=== PATIENT | male | born 1950 | race Caucasian/White ===

== ENCOUNTER 2017-09-16 14:11 | Observation (INO) ==
[2017-09-16] MEDS ORDERED: DOCUSATE SODIUM 100 MG CAPSULE PO PRN (14:39)
[2017-09-16] MEDS ORDERED: LACTULOSE 20 GM/30 ML UDCUP PO PRN (14:39)
[2017-09-16] MEDS ORDERED: MAGNESIUM SULF RIDER 2 GM in PREMIX 1 EACH IV PRN ×2 (14:39→20:35)
[2017-09-16] MEDS ORDERED: ZALEPLON 5 MG CAPSULE PO PRN (14:39)
[2017-09-16] MEDS ORDERED: ACETAMINOPHEN 325 MG TABLET PO PRN (14:39)
[2017-09-16] MEDS ORDERED: MAGNESIUM SULF RIDER 4 GM in PREMIX 1 EACH IV PRN (14:39)
[2017-09-16] MEDS ORDERED: ONDANSETRON 4 MG/2 ML VIAL IV PRN (14:39)
[2017-09-16] MEDS ORDERED: POTASSIUM CHLORIDE 20 MEQ TABLET PO PRN (14:39)
[2017-09-16 15:55] LABS: Basophils % 0.4 % (0.0-0.8); Eosinophils # 0.2 10*3/uL (0.0-0.87); Eosinophils % 2.3 % (0.00-10.9); Hematocrit 41.7 VOL% (42.0-52.0); Hemoglobin 13.7 GM/DL (14.0-18.0); Immature Granulocytes % 0.3 %; Immature Granulocytes Absolute 0.02 #; Lymphocytes % 40.2 % (21.2-54.2); Mean Corpuscular HGB Conc 32.9 GM/DL (32-36); Mean Corpuscular Hemoglobin 30 PG (27-34); Mean Corpuscular Volume 90.5 FL (87-102); Mean Platelet Volume 10.5 FL (9.6-12.0); Monocytes # 0.5 10*3/uL (0.11-0.8); Monocytes % 6.8 % (1.7-12.7); Neutrophils # 3.7 10*3/uL (1.4-7.4); Platelet Count 178 T/CUMM (130-400); Red Blood Count 4.61 MC/CUMM (3.8-5.5); Red Cell Distribution Width 13.1 % (9.3-17.3); White Blood Count 7.5 T/CUMM (4-12)
[2017-09-16 16:26] LABS: Alanine Aminotransferase 31 U/L (16-61); Albumin 3.4 G/DL (3.4-5.0); Alkaline Phosphatase 62 U/L (45-117); Aspartate Amino Transferase 24 U/L (0-37); Bilirubin,Total < 0.39 MG/DL (0.2-1.0); Blood Urea Nitrogen 13 MG/DL (7-18); Calcium 8.7 MG/DL (8.5-10.1); Glucose 99 MG/DL (74-106); Osmolality,Calculated 282.1 MOS/KG (273-304); Potassium 3.9 MMOL/L (3.5-5.1); Sodium 142 MMOL/L (136-145); Total Protein 7.1 G/DL (6.4-8.3); Troponin I Only 0.234 NG/ML (0.00-0.045)
[2017-09-16] MEDS: PANTOPRAZOLE 40 MG TABLET PO SCH (16:27)
[2017-09-16] MEDS: LOSARTAN 25 MG TABLET PO SCH (16:27)
[2017-09-16] MEDS: ENOXAPARIN 100 MG/ML SYRINGE SUBCUT SCH (16:27)
[2017-09-16 18:42] LABS: Troponin I Only 0.244 NG/ML (0.00-0.045)
[2017-09-16] MEDS ORDERED: POTASSIUM CHLORIDE RIDER 10 MEQ in PREMIX 1 EACH IV PRN (20:35)
[2017-09-16] MEDS: METOPROLOL TARTRATE 25 MG TABLET PO SCH (20:41)
[2017-09-16] MEDS: ROSUVASTATIN 20 MG TABLET PO SCH (20:41)
[2017-09-16 21:15] LABS: Troponin I Only 0.239 NG/ML (0.00-0.045)
[2017-09-17] MEDS ORDERED: SODIUM CHLORIDE 0.9% 1,000 ML IV SCH (03:00)
[2017-09-17] MEDS: ENOXAPARIN 100 MG/ML SYRINGE SUBCUT SCH ×2 (03:34→16:30)
[2017-09-17 05:14] LABS: Basophils % 0.4 % (0.0-0.8); Eosinophils # 0.2 10*3/uL (0.0-0.87); Eosinophils % 2.1 % (0.00-10.9); Immature Granulocytes % 0.3 %; Immature Granulocytes Absolute 0.02 #; Mean Corpuscular HGB Conc 34.1 GM/DL (32-36); Mean Corpuscular Hemoglobin 30 PG (27-34); Mean Corpuscular Volume 88.4 FL (87-102); Mean Platelet Volume 10.7 FL (9.6-12.0); Monocytes # 0.5 10*3/uL (0.11-0.8); Monocytes % 6.2 % (1.7-12.7); Neutrophils # 3.8 10*3/uL (1.4-7.4); Platelet Count 188 T/CUMM (130-400); Red Blood Count 4.64 MC/CUMM (3.8-5.5); Red Cell Distribution Width 13.2 % (9.3-17.3); White Blood Count 7.5 T/CUMM (4-12)
[2017-09-17 05:26] LABS: INR 1.1; PT Patient Result 11.4 SECS
[2017-09-17 05:57] LABS: Risk Ratio 5.58; VLDL CHOLESTEROL 91.6 MG/DL
[2017-09-17] MEDS ORDERED: DIAZEPAM 5 MG TABLET PO ONE (06:00)
[2017-09-17] MEDS ORDERED: diphenhydrAMINE CAP 25 MG CAPSULE PO ONE (06:00)
[2017-09-17] MEDS ORDERED: HEPARIN/NACL 0.9% 2 UNITS/ML 2,000 ML IV ONE (06:39)
[2017-09-17] MEDS ORDERED: ASPIRIN CHEW 81 MG TABLET PO ONE (06:44)
[2017-09-17] MEDS: LOSARTAN 25 MG TABLET PO SCH ×2 (06:45→16:22)
[2017-09-17] MEDS: PANTOPRAZOLE 40 MG TABLET PO SCH ×2 (06:46→16:22)
[2017-09-17] MEDS: ASPIRIN EC 81 MG TABLET PO SCH ×2 (06:46→16:21)
[2017-09-17] MEDS: METOPROLOL TARTRATE 25 MG TABLET PO SCH ×3 (06:46→22:42)
[2017-09-17] MEDS ORDERED: MIDAZOLAM 2 MG/2 ML VIAL ONE (07:18)
[2017-09-17] MEDS ORDERED: LIDOCAINE 2%/EPI 20 ML VIAL ONE (07:18)
[2017-09-17] MEDS ORDERED: fentaNYL 100 MCG/2 ML VIAL ONE (07:19)
[2017-09-17] MEDS ORDERED: EPTIFIBATIDE 20,000 MCG/10 ML VIAL ONE (07:56)
[2017-09-17] MEDS ORDERED: EPTIFIBATIDE 75 MG/100 ML BOTTLE IV ONE (07:56)
[2017-09-17] MEDS ORDERED: EPTIFIBATIDE 75 MG/100 ML BOTTLE IV SCH (08:02)
[2017-09-17] MEDS ORDERED: DEXTROSE 50% 25 GM/50 ML VIAL IV PRN (08:52)
[2017-09-17] MEDS ORDERED: GLUCAGON 1 MG VIAL IM PRN (08:52)
[2017-09-17] MEDS ORDERED: HYDROmorphone 2 MG/1 ML VIAL IV PRN (08:53)
[2017-09-17] MEDS ORDERED: Dulaglutide [Trulicity] 1.5 MG SQ SCH (09:00)
[2017-09-17] MEDS: TICAGRELOR 90 MG TABLET PO SCH ×2 (16:30→22:42)
[2017-09-17] MEDS: INSULIN REGULAR 100 UNIT/ML SUBCUT SCH ×3 (16:54→22:41)
[2017-09-17] MEDS: ROSUVASTATIN 20 MG TABLET PO SCH (22:42)
[2017-09-18 05:35] LABS: Basophils % 0.3 % (0.0-0.8); Eosinophils # 0.1 10*3/uL (0.0-0.87); Eosinophils % 1.8 % (0.00-10.9); Hematocrit 40.8 VOL% (42.0-52.0); Hemoglobin 14.1 GM/DL (14.0-18.0); Immature Granulocytes % 0.5 %; Immature Granulocytes Absolute 0.04 #; Lymphocytes # 2.4 10*3/uL (1.4-4.0); Lymphocytes % 32.3 % (21.2-54.2); Mean Corpuscular HGB Conc 34.6 GM/DL (32-36); Mean Corpuscular Hemoglobin 30 PG (27-34); Mean Corpuscular Volume 86.6 FL (87-102); Mean Platelet Volume 10.7 FL (9.6-12.0); Monocytes # 0.5 10*3/uL (0.11-0.8); Monocytes % 6.8 % (1.7-12.7); Neutrophils # 4.3 10*3/uL (1.4-7.4); Neutrophils % 58.3 % (38.7-73.9); Platelet Count 173 T/CUMM (130-400); Red Blood Count 4.71 MC/CUMM (3.8-5.5); White Blood Count 7.3 T/CUMM (4-12)
[2017-09-18 06:20] LABS: Calcium 8.4 MG/DL (8.5-10.1); Osmolality,Calculated 279.4 MOS/KG (273-304)
[2017-09-18 07:45] VITALS: BP 130/74
== END 2017-09-18 07:54 | disposition home or self-care (01) ==
LOC: INTOOBSV 15:00 → N.TELEN 15:00
PROVIDERS: ADMIT Internal Medicine Interventional Cardiology; ATTEND Internal Medicine Interventional Cardiology
PROC: CLCCHCL (ICD-10-PCS; 2017-09-17 07:45)

== ENCOUNTER 2019-08-11 06:00 | Inpatient (IN) ==
[2019-08-11] MEDS ORDERED: DEXTROSE 50% 25 GM/50 ML VIAL IV PRN ×2 (11:23)
[2019-08-11] MEDS ORDERED: GLUCAGON 1 MG VIAL IM PRN ×2 (11:23)
[2019-08-11] MEDS ORDERED: CEFUROXIME INJ 1,500 MG in SYRINGE 1 EACH IV ONE (11:23)
[2019-08-11 12:04] LABS: Basophils % 0.4 % (0.0-0.8); Eosinophils # 0.2 10*3/uL (0.0-0.87); Eosinophils % 2.3 % (0.00-10.9); Hematocrit 41.2 VOL% (42.0-52.0); Hemoglobin 13.1 GM/DL (14.0-18.0); Immature Granulocytes % 0.4 %; Immature Granulocytes Absolute 0.03 #; Lymphocytes # 2.8 10*3/uL (1.4-4.0); Lymphocytes % 37.7 % (21.2-54.2); Mean Corpuscular HGB Conc 31.8 GM/DL (32-36); Mean Corpuscular Volume 89.4 FL (87-102); Mean Platelet Volume 10.8 FL (9.6-12.0); Neutrophils % 54.2 % (38.7-73.9); Platelet Count 178 T/CUMM (130-400); Red Blood Count 4.61 MC/CUMM (3.8-5.5); Red Cell Distribution Width 13.7 % (9.3-17.3); White Blood Count 7.5 T/CUMM (4-12)
[2019-08-11] MEDS: INSULIN LISPRO 100 UNIT/ML SUBCUT SCH ×3 (12:07→20:42)
[2019-08-11 12:23] LABS: Allen Test Positive; Pt O2 Delivery Device Room Air
[2019-08-11 12:25] LABS: ABG Base Excess -1.4 MMOL/L (-2.5-2.5); ABG HCO3 23.6 MMOL/L (20-26); ABG Oxygen Saturation 95.5 % (95-100); ABG PCO2 40.6 MM HG (35-48); ABG PH 7.382 (7.35-7.45); ABG PO2 80.8 MM HG (80-95); ABG TCO2 24.8 MMOL/L (23-27)
[2019-08-11 12:27] LABS: Alanine Aminotransferase 50 U/L (16-61); Albumin 3.3 G/DL (3.4-5.0); Alkaline Phosphatase 59 U/L (45-117); Aspartate Amino Transferase 26 U/L (0-37); Bilirubin,Total < 0.39 MG/DL (0.2-1.0); Blood Urea Nitrogen 15 MG/DL (7-18); Calcium 9.1 MG/DL (8.5-10.1); Estimated Glom Filtration Rate 90 ML/MIN; Glucose 190 MG/DL (74-106); Total Protein 7.8 G/DL (6.4-8.3)
[2019-08-11] MEDS: SODIUM CHLORIDE 0.9% 1,000 ML IV SCH (14:03)
[2019-08-11] MEDS: CHLORHEXIDINE 4% SOLN 118 ML BOTTLE TOP SCH ×2 (15:13→20:42)
[2019-08-11] MEDS: CHLORHEXIDINE 0.12% ORAL RINSE 60 ML BOTTLE SWISH/SPIT SCH (20:41)
[2019-08-12] MEDS ORDERED: PAPAVERINE 60 MG/2 ML VIAL ONE (04:23)
[2019-08-12] MEDS ORDERED: VANCOMYCIN 500 MG VIAL ONE (04:24)
[2019-08-12] MEDS ORDERED: VANCOMYCIN 1,000 MG VIAL ONE (04:24)
[2019-08-12] MEDS ORDERED: DIAZEPAM 5 MG TABLET PO ONE (06:00)
[2019-08-12] MEDS ORDERED: PANTOPRAZOLE 40 MG TABLET PO ONE (06:00)
[2019-08-12] MEDS ORDERED: SUFentanil 250 MCG/5 ML AMP ONE (06:00)
[2019-08-12] MEDS ORDERED: MIDAZOLAM 10 MG/2 ML VIAL ONE (06:00)
[2019-08-12] MEDS ORDERED: AMINOCAPROIC ACID 5,000 MG/20 ML VIAL ONE (06:11)
[2019-08-12] MEDS ORDERED: CEFUROXIME INJ 1,500 MG in SYRINGE 1 EACH IV ONE (07:00)
[2019-08-12] MEDS ORDERED: ALBUTEROL 2.5 MG/3 ML NEB RESP TX ONE (07:55)
[2019-08-12 08:23] LABS: ABG Base Excess 0.8 MMOL/L (-2.5-2.5); ABG HCO3 25.2 MMOL/L (20-26); ABG Oxygen Saturation 99.9 % (95-100); ABG PCO2 50.3 MM HG (35-48); ABG PH 7.342 (7.35-7.45); ABG TCO2 24.4 MMOL/L (23-27); Glucose Heart Surgery 174 MG/DL (74-106); Hematocrit Heart Surgery 36.3 PERCENT (42-52); Hemoglobin Heart Surgery 11.8 G/DL (14.0-18.0); Ionized Calcium Arterial 1.21 MMOL/L (1.21-1.46); PCO2 Patient Temp Arterial 50.3 MMHG; PH Patient Temp Arterial 7.342; Patient Temperature 37 CELCIUS; Potassium Heart/CVR 4.2 MMOL/L (3.5-5.1); Sodium Heart/CVR 137 MMOL/L (135-145)
[2019-08-12 09:00] LABS: Apearance,Urine CLEAR (Clear); Bacteria,Urine Occasional /HPF (Few); Bilirubin,Urine Negative (Negative); Blood, Urine Negative (Negative); Glucose,Urine (UA) Negative (Negative); Ketones,Urine Negative (Negative); Mucus,Urine Occasional /LPF (Occasional); Nitrite,Urine Negative (Negative); Protein,Urine Negative; RBC,Urine 1 /HPF (0-4); Urine Color Yellow (Yellow); Urine Specific Gravity 1.016 (1.001-1.035); Urine Urobilinogen < 2.0 EU/DL (0.2-1.0); WBC,Urine <1 /HPF (0-6)
[2019-08-12] MEDS ORDERED: LIDOCAINE 2% 5 ML VIAL ONE ×2 (09:58→12:00)
[2019-08-12] MEDS ORDERED: PHENYLEPHRINE DRIP 20 MG/250 ML PREMIX IV ONE (09:58)
[2019-08-12] MEDS ORDERED: CALCIUM CHLORIDE 1,000 MG/10 ML VIAL IV ONE (09:58)
[2019-08-12] MEDS ORDERED: HEPARIN/NACL 0.9% 2 UNITS/ML 500 ML IV ONE (09:58)
[2019-08-12] MEDS ORDERED: ETOMIDATE 40 MG/20 ML VIAL IV ONE (09:58)
[2019-08-12] MEDS ORDERED: VECURONIUM 10 MG VIAL IV ONE (09:58)
[2019-08-12] MEDS ORDERED: PHENYLEPHRINE 1 MG/10 ML SYRINGE IV ONE (09:59)
[2019-08-12] MEDS ORDERED: NITROGLYCERIN DRIP 50 MG/250 ML BOTTLE IV ONE (09:59)
[2019-08-12 10:07] LABS: Hematocrit Heart Surgery 24.8 PERCENT (42-52); PCO2 Patient Temp Venous 36.1 MM HG; PH Patient Temp Venous 7.464; PO2 Patient Temp Venous 38.1 MM HG; Potassium Heart/CVR 5.5 MMOL/L (3.5-5.1); VBG Base Excess 2.4 MEQ/L (0-4); VBG HCO3 26.4 MEQ/L (24-28); VBG PCO2 41.8 MMHG (41-51); VBG PH 7.42; VBG PO2 46.8 MMHG (17-40)
[2019-08-12] MEDS ORDERED: POTASSIUM CHLORIDE RIDER 100 ML IV ONE (10:10)
[2019-08-12] MEDS ORDERED: PHENYLEPHRINE DRIP 40 MG/250 ML PREMIX IV ONE (10:10)
[2019-08-12 10:37] LABS: Hematocrit Heart Surgery 26.4 PERCENT (42-52); Hemoglobin Heart Surgery 8.5 G/DL (14.0-18.0); PCO2 Patient Temp Venous 30.9 MM HG; PH Patient Temp Venous 7.521; PO2 Patient Temp Venous 32.1 MM HG; Potassium Heart/CVR 5.6 MMOL/L (3.5-5.1); VBG Base Excess 2.8 MEQ/L (0-4); VBG HCO3 26.7 MEQ/L (24-28); VBG Oxygen Saturation 81.2 %; VBG PCO2 37.5 MMHG (41-51); VBG PH 7.461; VBG PO2 42.4 MMHG (17-40)
[2019-08-12 11:51] LABS: ABG Base Excess 0.9 MMOL/L (-2.5-2.5); ABG HCO3 25.3 MMOL/L (20-26); ABG PCO2 42.6 MM HG (35-48); ABG PH 7.393 (7.35-7.45); Glucose Heart Surgery 269 MG/DL (74-106); Hematocrit Heart Surgery 27.5 PERCENT (42-52); Hemoglobin Heart Surgery 8.9 G/DL (14.0-18.0); Ionized Calcium Arterial 1.15 MMOL/L (1.21-1.46); PCO2 Patient Temp Arterial 42.6 MMHG; PH Patient Temp Arterial 7.393; Patient Temperature 37 CELCIUS; Sodium Heart/CVR 135 MMOL/L (135-145)
[2019-08-12] MEDS ORDERED: ALBUMIN 25% 25 GM/100 ML VIAL IV ONE (12:00)
[2019-08-12] MEDS ORDERED: DEXTROSE 5% KCL 20 MEQ 20 MEQ/1,000 ML BAG IV ONE (12:00)
[2019-08-12] MEDS ORDERED: SODIUM BICARBONATE 50 MEQ/50 ML VIAL IV ONE (12:00)
[2019-08-12] MEDS ORDERED: MANNITOL 100 GM/500 ML BAG IV ONE (12:00)
[2019-08-12] MEDS ORDERED: PROTAMINE SULFATE 250 MG/25 ML VIAL IV ONE (12:00)
[2019-08-12] MEDS ORDERED: FUROSEMIDE 20 MG/2 ML VIAL ONE (12:01)
[2019-08-12] MEDS ORDERED: HEPARIN 10,000 UNIT/10 ML VIAL ONE (12:01)
[2019-08-12] MEDS ORDERED: methylPREDNISolone SOD SUC 1,000 MG/8 ML VIAL ONE (12:01)
[2019-08-12] MEDS ORDERED: MAGNESIUM SULFATE 5 GM/10 ML VIAL IV ONE (12:01)
[2019-08-12] MEDS ORDERED: PROTAMINE SULFATE 50 MG/5 ML VIAL IV ONE (12:01)
[2019-08-12] MEDS ORDERED: THROMBIN TOPICAL (RECOMBINANT) 5,000 UNIT VIAL TOP ONE (12:44)
[2019-08-12] MEDS: LACTATED RINGERS 1,000 ML IV PRN ×2 (13:10→14:15)
[2019-08-12] MEDS ORDERED: SODIUM CHLORIDE 0.9% 250 ML IV ONE (13:25)
[2019-08-12] MEDS ORDERED: SODIUM CHLORIDE 0.9% 1,000 ML IV ONE (13:25)
[2019-08-12] MEDS ORDERED: LACTATED RINGERS 2,000 ML IV ONE (13:25)
[2019-08-12] MEDS ORDERED: SODIUM CHLORIDE 0.9% 200 ML IV ONE (13:25)
[2019-08-12] MEDS ORDERED: SEVOFLURANE 1 UNIT/15 MINUTE INH ONE (13:25)
[2019-08-12] MEDS ORDERED: ONDANSETRON 4 MG/2 ML VIAL IV PRN (13:38)
[2019-08-12] MEDS ORDERED: INSULIN REGULAR 100 UNIT/ML IV PRN (13:38)
[2019-08-12] MEDS ORDERED: ACETAMINOPHEN 650 MG SUPP RECTAL PRN (13:38)
[2019-08-12] MEDS ORDERED: MIDAZOLAM 10 MG/2 ML VIAL IV PRN (13:38)
[2019-08-12] MEDS ORDERED: PHENYLEPHRINE DRIP 40 MG/250 ML PREMIX IV PRN (13:38)
[2019-08-12] MEDS ORDERED: SODIUM CHLORIDE 0.45% 1,000 ML IV SCH ×2 (13:38)
[2019-08-12] MEDS ORDERED: NITROPRUSSIDE 100 MG in DEXTROSE 5% 250 ML IV PRN (13:38)
[2019-08-12] MEDS ORDERED: CALCIUM CHLORIDE 1,000 MG/10 ML SYRINGE IV PRN (13:38)
[2019-08-12] MEDS ORDERED: VECURONIUM 10 MG VIAL IV PRN ×2 (13:38)
[2019-08-12] MEDS ORDERED: MORPHINE 10 MG/1 ML VIAL IV PRN (13:38)
[2019-08-12] MEDS ORDERED: LACTATED RINGERS 250 ML IV PRN (13:38)
[2019-08-12] MEDS ORDERED: INSULIN REGULAR DRIP 100 ML IV SCH (13:38)
[2019-08-12] MEDS ORDERED: CHLORHEXIDINE 4% SOLN 118 ML BOTTLE TOP PRN (13:38)
[2019-08-12] MEDS ORDERED: MAGNESIUM SULF RIDER 2 GM in PREMIX 1 EACH IV PRN (13:38)
[2019-08-12] MEDS ORDERED: MAGNESIUM SULF RIDER 4 GM in PREMIX 1 EACH IV PRN (13:38)
[2019-08-12] MEDS ORDERED: INSULIN REGULAR 100 UNIT/ML IV ONE (13:38)
[2019-08-12] MEDS ORDERED: MIDAZOLAM 2 MG/2 ML VIAL IV PRN (13:38)
[2019-08-12] MEDS ORDERED: DEXTROSE 10% 250 ML BAG IV PRN ×2 (13:47→13:48)
[2019-08-12 13:54] LABS: ABG Base Excess 1.4 MMOL/L (-2.5-2.5); ABG HCO3 25.7 MMOL/L (20-26); ABG Oxygen Saturation 98.7 % (95-100); ABG PCO2 52.4 MM HG (35-48); ABG PH 7.333 (7.35-7.45); ABG TCO2 26.1 MMOL/L (23-27); Glucose Heart Surgery 248 MG/DL (74-106); Hematocrit Heart Surgery 24.8 PERCENT (42-52); Potassium Heart/CVR 3.6 MMOL/L (3.5-5.1)
[2019-08-12 14:01] LABS: Basophils % 0.2 % (0.0-0.8); Eosinophils % 0.2 % (0.00-10.9); Hematocrit 23.4 VOL% (42.0-52.0); Hemoglobin 7.6 GM/DL (14.0-18.0); Immature Granulocytes % 1.3 %; Immature Granulocytes Absolute 0.16 #; Lymphocytes % 7.9 % (21.2-54.2); Mean Corpuscular HGB Conc 32.5 GM/DL (32-36); Mean Corpuscular Volume 88.3 FL (87-102); Mean Platelet Volume 10.4 FL (9.6-12.0); Monocytes % 3.2 % (1.7-12.7); Neutrophils % 87.2 % (38.7-73.9); Platelet Count 163 T/CUMM (130-400); Red Blood Count 2.65 MC/CUMM (3.8-5.5); Red Cell Distribution Width 13.5 % (9.3-17.3); White Blood Count 12.5 T/CUMM (4-12)
[2019-08-12 14:09] LABS: INR 1.1; PT Patient Result 12.2 SECS (9.6-12.2)
[2019-08-12] MEDS: POTASSIUM CHLORIDE RIDER 20 MEQ in PREMIX 1 EACH IV PRN ×3 (14:10→20:26)
[2019-08-12] MEDS: ALBUMIN 5% 12.5 GM in PREMIX 1 EACH IV PRN ×2 (14:15→18:56)
[2019-08-12 14:19] LABS: CKMB % 6.9 %
[2019-08-12 14:20] LABS: Troponin I 6.06 NG/ML (0.00-0.045)
[2019-08-12 14:22] LABS: Albumin 2.7 G/DL (3.4-5.0); Bilirubin,Total 0.5 MG/DL (0.2-1.0); Calcium 8.3 MG/DL (8.5-10.1); Total Protein 5.8 G/DL (6.4-8.3)
[2019-08-12] MEDS: CHLORHEXIDINE 4% SOLN 118 ML BOTTLE TOP SCH (14:50)
[2019-08-12] MEDS: CHLORHEXIDINE 0.12% ORAL RINSE 60 ML BOTTLE SWISH/SPIT SCH ×2 (14:50→21:14)
[2019-08-12] MEDS: INSULIN LISPRO 100 UNIT/ML SUBCUT SCH (14:50)
[2019-08-12] MEDS: SODIUM CHLORIDE 0.9% 1,000 ML IV SCH (14:50)
[2019-08-12] MEDS: POTASSIUM CHLORIDE RIDER 10 MEQ in PREMIX 1 EACH IV PRN ×3 (15:07→21:10)
[2019-08-12 17:04] LABS: ABG Base Excess 0.8 MMOL/L (-2.5-2.5); ABG HCO3 25.2 MMOL/L (20-26); ABG Oxygen Saturation 98.8 % (95-100); ABG PCO2 44.7 MM HG (35-48); ABG PH 7.377 (7.35-7.45); ABG TCO2 23.7 MMOL/L (23-27); Glucose Heart Surgery 180 MG/DL (74-106); Hematocrit Heart Surgery 33.1 PERCENT (42-52); Hemoglobin Heart Surgery 10.7 G/DL (14.0-18.0); Potassium Heart/CVR 3.8 MMOL/L (3.5-5.1)
[2019-08-12] MEDS ORDERED: GLUCAGON 1 MG VIAL ONE (18:40)
[2019-08-12 19:23] LABS: ABG Base Excess 1.7 MMOL/L (-2.5-2.5); ABG Oxygen Saturation 99.2 % (95-100); ABG PCO2 40.1 MM HG (35-48); ABG PH 7.423 (7.35-7.45); ABG TCO2 23.5 MMOL/L (23-27); Glucose Heart Surgery 134 MG/DL (74-106); Hematocrit Heart Surgery 33.8 PERCENT (42-52)
[2019-08-12 20:13] LABS: ABG Base Excess 1.6 MMOL/L (-2.5-2.5); ABG HCO3 25.8 MMOL/L (20-26); ABG Oxygen Saturation 98.7 % (95-100); ABG PCO2 44.8 MM HG (35-48); ABG PH 7.388 (7.35-7.45); ABG TCO2 24.2 MMOL/L (23-27); Glucose Heart Surgery 135 MG/DL (74-106); Hematocrit Heart Surgery 34.4 PERCENT (42-52); Hemoglobin Heart Surgery 11.1 G/DL (14.0-18.0); Potassium Heart/CVR 3.9 MMOL/L (3.5-5.1)
[2019-08-12] MEDS: CEFUROXIME INJ 1,500 MG in SYRINGE 1 EACH IV SCH (20:33)
[2019-08-12 21:41] LABS: ABG Base Excess 1.1 MMOL/L (-2.5-2.5); ABG HCO3 25.4 MMOL/L (20-26); ABG Oxygen Saturation 98.5 % (95-100); ABG PCO2 41.9 MM HG (35-48); ABG PH 7.401 (7.35-7.45); ABG TCO2 23.4 MMOL/L (23-27); Glucose Heart Surgery 147 MG/DL (74-106); Hematocrit Heart Surgery 33.5 PERCENT (42-52); Hemoglobin Heart Surgery 10.8 G/DL (14.0-18.0); Potassium Heart/CVR 4.4 MMOL/L (3.5-5.1)
[2019-08-12 22:00] LABS: CKMB % 4.6 %
[2019-08-12 22:20] LABS: Troponin I 4.71 NG/ML (0.00-0.045)
[2019-08-12 22:42] LABS: ABG Base Excess 1.4 MMOL/L (-2.5-2.5); ABG HCO3 25.6 MMOL/L (20-26); ABG Oxygen Saturation 98.2 % (95-100); ABG PCO2 43.3 MM HG (35-48); ABG PH 7.395 (7.35-7.45); ABG TCO2 23.8 MMOL/L (23-27); Glucose Heart Surgery 154 MG/DL (74-106); Hematocrit Heart Surgery 33.6 PERCENT (42-52); Hemoglobin Heart Surgery 10.9 G/DL (14.0-18.0); Potassium Heart/CVR 4.2 MMOL/L (3.5-5.1)
[2019-08-12 23:27] LABS: ABG Base Excess 1.2 MMOL/L (-2.5-2.5); ABG HCO3 25.4 MMOL/L (20-26); ABG PCO2 43.1 MM HG (35-48); ABG PH 7.393 (7.35-7.45); ABG PO2 84.3 MM HG (80-95); ABG TCO2 23.6 MMOL/L (23-27); Glucose Heart Surgery 156 MG/DL (74-106); Hematocrit Heart Surgery 33.7 PERCENT (42-52); Hemoglobin Heart Surgery 10.9 G/DL (14.0-18.0)
[2019-08-13 00:29] LABS: ABG HCO3 25.3 MMOL/L (20-26); ABG Oxygen Saturation 98.1 % (95-100); ABG PCO2 44.7 MM HG (35-48); ABG PH 7.381 (7.35-7.45); ABG TCO2 23.8 MMOL/L (23-27); Glucose Heart Surgery 135 MG/DL (74-106); Hematocrit Heart Surgery 33.7 PERCENT (42-52); Hemoglobin Heart Surgery 10.9 G/DL (14.0-18.0); Potassium Heart/CVR 3.9 MMOL/L (3.5-5.1)
[2019-08-13] MEDS: ALBUMIN 5% 12.5 GM in PREMIX 1 EACH IV PRN (01:57)
[2019-08-13] MEDS ORDERED: FUROSEMIDE 40 MG/4 ML VIAL IV ONE (01:58)
[2019-08-13 02:31] LABS: ABG Base Excess 1.5 MMOL/L (-2.5-2.5); ABG HCO3 25.7 MMOL/L (20-26); ABG Oxygen Saturation 98.4 % (95-100); ABG PCO2 44.1 MM HG (35-48); ABG PH 7.391 (7.35-7.45); Glucose Heart Surgery 133 MG/DL (74-106); Hematocrit Heart Surgery 34.1 PERCENT (42-52); Hemoglobin Heart Surgery 11.1 G/DL (14.0-18.0); Potassium Heart/CVR 3.9 MMOL/L (3.5-5.1)
[2019-08-13] MEDS: POTASSIUM CHLORIDE RIDER 20 MEQ in PREMIX 1 EACH IV PRN (02:40)
[2019-08-13] MEDS: MORPHINE 4 MG/1 ML VIAL IV PRN ×2 (02:45→05:40)
[2019-08-13] MEDS: POTASSIUM CHLORIDE RIDER 10 MEQ in PREMIX 1 EACH IV PRN (03:21)
[2019-08-13 04:24] LABS: ABG Base Excess 2.8 MMOL/L (-2.5-2.5); ABG HCO3 26.8 MMOL/L (20-26); ABG Oxygen Saturation 96.4 % (95-100); ABG PCO2 44.1 MM HG (35-48); ABG PH 7.409 (7.35-7.45); ABG TCO2 24.9 MMOL/L (23-27); Glucose Heart Surgery 166 MG/DL (74-106); Hemoglobin Heart Surgery 11.4 G/DL (14.0-18.0); Potassium Heart/CVR 4.1 MMOL/L (3.5-5.1)
[2019-08-13 04:26] LABS: Basophils % 0.1 % (0.0-0.8); Hematocrit 32.7 VOL% (42.0-52.0); Immature Granulocytes % 0.4 %; Immature Granulocytes Absolute 0.05 #; Lymphocytes # 0.8 10*3/uL (1.4-4.0); Mean Corpuscular HGB Conc 33.6 GM/DL (32-36); Mean Corpuscular Volume 85.2 FL (87-102); Mean Platelet Volume 10.9 FL (9.6-12.0); Monocytes % 3.9 % (1.7-12.7); Neutrophils % 89.6 % (38.7-73.9); Platelet Count 152 T/CUMM (130-400); Red Blood Count 3.84 MC/CUMM (3.8-5.5); Red Cell Distribution Width 14.2 % (9.3-17.3); White Blood Count 13.9 T/CUMM (4-12)
[2019-08-13 04:47] LABS: Albumin 3.5 G/DL (3.4-5.0); Bilirubin,Direct 0.12 MG/DL (0.0-0.20); Bilirubin,Total 0.5 MG/DL (0.2-1.0); Calcium 8.6 MG/DL (8.5-10.1); Osmolality,Calculated 277.7 MOS/KG (273-304); Total Protein 6.9 G/DL (6.4-8.3)
[2019-08-13 04:55] LABS: CKMB % 4.2 %
[2019-08-13 04:57] LABS: Troponin I 3.17 NG/ML (0.00-0.045)
[2019-08-13] MEDS ORDERED: GLUCAGON 1 MG VIAL IM PRN ×3 (09:01→18:44)
[2019-08-13] MEDS ORDERED: KETOROLAC 30 MG/1 ML VIAL IV PRN (09:01)
[2019-08-13] MEDS ORDERED: SODIUM CHLOR 0.45% KCL 20 MEQ 20 MEQ/1,000 ML BAG IV SCH (09:01)
[2019-08-13] MEDS ORDERED: ZALEPLON 5 MG CAPSULE PO PRN (09:01)
[2019-08-13] MEDS ORDERED: MAGNESIUM SULF RIDER 4 GM in PREMIX 1 EACH IV PRN (09:01)
[2019-08-13] MEDS ORDERED: ACETAMINOPHEN 325 MG TABLET PO PRN (09:01)
[2019-08-13] MEDS ORDERED: ALUMINUM/MAGNES/SIMETH MAX STR 30 ML UDCUP PO PRN (09:01)
[2019-08-13] MEDS ORDERED: MAGNESIUM SULF RIDER 2 GM in PREMIX 1 EACH IV PRN (09:01)
[2019-08-13] MEDS ORDERED: MAGNESIUM HYDROXIDE SUSP 30 ML UDCUP PO PRN (09:01)
[2019-08-13] MEDS ORDERED: POTASSIUM CHLORIDE 20 MEQ TABLET PO PRN (09:01)
[2019-08-13] MEDS ORDERED: ONDANSETRON 4 MG/2 ML VIAL IV PRN (09:01)
[2019-08-13] MEDS: KETOROLAC 30 MG/1 ML VIAL IV SCH ×3 (09:06→21:50)
[2019-08-13] MEDS: CEFUROXIME INJ 1,500 MG in SYRINGE 1 EACH IV SCH ×2 (09:08→21:49)
[2019-08-13] MEDS ORDERED: DEXTROSE 10% 250 ML BAG IV PRN (09:08)
[2019-08-13] MEDS: CHLORHEXIDINE 0.12% ORAL RINSE 60 ML BOTTLE SWISH/SPIT SCH ×3 (09:15→21:51)
[2019-08-13] MEDS: METOPROLOL TARTRATE 25 MG TABLET PO SCH ×2 (09:19→21:48)
[2019-08-13] MEDS: DOCUSATE SODIUM 100 MG CAPSULE PO SCH (09:19)
[2019-08-13] MEDS: ASPIRIN EC 81 MG TABLET PO SCH (09:19)
[2019-08-13] MEDS: LOSARTAN 25 MG TABLET PO SCH (09:21)
[2019-08-13] MEDS: PANTOPRAZOLE 40 MG TABLET PO SCH (09:21)
[2019-08-13] MEDS: FERROUS SULFATE 325 MG TABLET PO SCH (10:20)
[2019-08-13 14:02] LABS: CKMB % 2.6 %
[2019-08-13 14:07] LABS: Troponin I 2.31 NG/ML (0.00-0.045)
[2019-08-13] MEDS ORDERED: DEXTROSE 50% 25 GM/50 ML VIAL IV PRN ×2 (18:40→18:44)
[2019-08-13] MEDS: ROSUVASTATIN 20 MG TABLET PO SCH (21:48)
[2019-08-13] MEDS: INSULIN REGULAR 100 UNIT/ML SUBCUT SCH (21:48)
[2019-08-14] MEDS: INSULIN REGULAR 100 UNIT/ML SUBCUT SCH ×6 (00:42→20:47)
[2019-08-14] MEDS: KETOROLAC 30 MG/1 ML VIAL IV SCH ×5 (03:00→20:48)
[2019-08-14 05:16] LABS: Basophils % 0.1 % (0.0-0.8); Hematocrit 30.1 VOL% (42.0-52.0); Hemoglobin 9.8 GM/DL (14.0-18.0); Immature Granulocytes % 0.9 %; Immature Granulocytes Absolute 0.13 #; Lymphocytes # 1.7 10*3/uL (1.4-4.0); Lymphocytes % 12.2 % (21.2-54.2); Mean Corpuscular HGB Conc 32.6 GM/DL (32-36); Mean Corpuscular Volume 89.1 FL (87-102); Mean Platelet Volume 11.5 FL (9.6-12.0); NRBC # 0.02 10*3/uL; Neutrophils % 79.8 % (38.7-73.9); Platelet Count 140 T/CUMM (130-400); Red Blood Count 3.38 MC/CUMM (3.8-5.5); Red Cell Distribution Width 14.3 % (9.3-17.3); White Blood Count 14.1 T/CUMM (4-12)
[2019-08-14 05:26] LABS: Alanine Aminotransferase 41 U/L (16-61); Albumin 3.1 G/DL (3.4-5.0); Alkaline Phosphatase 45 U/L (45-117); Aspartate Amino Transferase 27 U/L (0-37); Bilirubin,Direct < 0.100 MG/DL (0.0-0.20); Bilirubin,Total < 0.39 MG/DL (0.2-1.0); Blood Urea Nitrogen 30 MG/DL (7-18); Estimated Glom Filtration Rate 103 ML/MIN; Glucose 165 MG/DL (74-106); Osmolality,Calculated 288.4 MOS/KG (273-304); Total Protein 6.3 G/DL (6.4-8.3)
[2019-08-14 05:30] LABS: Alanine Aminotransferase 40 U/L (16-61); Albumin 3.1 G/DL (3.4-5.0); Alkaline Phosphatase 44 U/L (45-117); Aspartate Amino Transferase 28 U/L (0-37); Bilirubin,Indirect 0.3 MG/DL (0.0-1.0); Bilirubin,Total < 0.39 MG/DL (0.2-1.0); Total Protein 5.7 G/DL (6.4-8.3)
[2019-08-14] MEDS ORDERED: FUROSEMIDE 40 MG/4 ML VIAL IV ONE (06:00)
[2019-08-14] MEDS: METOPROLOL TARTRATE 25 MG TABLET PO SCH ×2 (09:05→20:46)
[2019-08-14] MEDS: ASPIRIN EC 81 MG TABLET PO SCH (09:05)
[2019-08-14] MEDS: PANTOPRAZOLE 40 MG TABLET PO SCH (09:05)
[2019-08-14] MEDS: DOCUSATE SODIUM 100 MG CAPSULE PO SCH (09:05)
[2019-08-14] MEDS: LOSARTAN 25 MG TABLET PO SCH (09:06)
[2019-08-14] MEDS: FERROUS SULFATE 325 MG TABLET PO SCH (09:06)
[2019-08-14] MEDS: CHLORHEXIDINE 0.12% ORAL RINSE 60 ML BOTTLE SWISH/SPIT SCH ×2 (09:07→20:47)
[2019-08-14] MEDS: metFORMIN 500 MG TABLET PO SCH ×2 (09:23→20:47)
[2019-08-14] MEDS: ROSUVASTATIN 20 MG TABLET PO SCH (20:47)
[2019-08-15] MEDS: KETOROLAC 30 MG/1 ML VIAL IV SCH ×2 (01:14→10:02)
[2019-08-15] MEDS: INSULIN REGULAR 100 UNIT/ML SUBCUT SCH ×7 (01:14→23:35)
[2019-08-15 05:41] LABS: Basophils % 0.2 % (0.0-0.8); Eosinophils # 0.1 10*3/uL (0.0-0.87); Eosinophils % 0.8 % (0.00-10.9); Hematocrit 29.4 VOL% (42.0-52.0); Hemoglobin 9.3 GM/DL (14.0-18.0); Immature Granulocytes Absolute 0.12 #; Lymphocytes # 3.4 10*3/uL (1.4-4.0); Lymphocytes % 28.9 % (21.2-54.2); Mean Corpuscular HGB Conc 31.6 GM/DL (32-36); Mean Corpuscular Volume 91.3 FL (87-102); Mean Platelet Volume 11.5 FL (9.6-12.0); Monocytes % 8.1 % (1.7-12.7); NRBC # 0.02 10*3/uL; Platelet Count 155 T/CUMM (130-400); Red Blood Count 3.22 MC/CUMM (3.8-5.5); Red Cell Distribution Width 14.5 % (9.3-17.3); White Blood Count 11.7 T/CUMM (4-12)
[2019-08-15 06:05] LABS: Alanine Aminotransferase 48 U/L (16-61); Albumin 2.7 G/DL (3.4-5.0); Alkaline Phosphatase 45 U/L (45-117); Aspartate Amino Transferase 26 U/L (0-37); Bilirubin,Total < 0.39 MG/DL (0.2-1.0); Blood Urea Nitrogen 32 MG/DL (7-18); Calcium 8.1 MG/DL (8.5-10.1); Estimated Glom Filtration Rate 103 ML/MIN; Glucose 116 MG/DL (74-106); Osmolality,Calculated 288.3 MOS/KG (273-304); Total Protein 5.9 G/DL (6.4-8.3)
[2019-08-15 06:06] LABS: Alanine Aminotransferase 47 U/L (16-61); Albumin 2.8 G/DL (3.4-5.0); Alkaline Phosphatase 44 U/L (45-117); Aspartate Amino Transferase 26 U/L (0-37); Bilirubin,Indirect 0.9 MG/DL (0.0-1.0); Total Protein 5.5 G/DL (6.4-8.3)
[2019-08-15 06:07] LABS: Troponin I 0.759 NG/ML (0.00-0.045)
[2019-08-15] MEDS ORDERED: FUROSEMIDE 40 MG/4 ML VIAL IV ONE (08:22)
[2019-08-15] MEDS: DOCUSATE SODIUM 100 MG CAPSULE PO SCH (09:40)
[2019-08-15] MEDS: ASPIRIN EC 81 MG TABLET PO SCH (09:40)
[2019-08-15] MEDS: metFORMIN 500 MG TABLET PO SCH ×2 (09:41→21:19)
[2019-08-15] MEDS: METOPROLOL TARTRATE 25 MG TABLET PO SCH ×2 (09:43→21:19)
[2019-08-15] MEDS: FERROUS SULFATE 325 MG TABLET PO SCH (09:44)
[2019-08-15] MEDS: PANTOPRAZOLE 40 MG TABLET PO SCH (09:44)
[2019-08-15] MEDS: LOSARTAN 25 MG TABLET PO SCH (09:44)
[2019-08-15] MEDS: CHLORHEXIDINE 0.12% ORAL RINSE 60 ML BOTTLE SWISH/SPIT SCH ×2 (09:58→21:20)
[2019-08-15] MEDS: ALBUTEROL/IPRATROPIUM 3 ML NEB RESP TX SCH ×2 (13:42→19:22)
[2019-08-15] MEDS: oxyCODONE/ACETAMINOPHEN 5-325 MG TABLET PO PRN (17:07)
[2019-08-15] MEDS: ROSUVASTATIN 20 MG TABLET PO SCH (21:19)
[2019-08-16] MEDS: ALBUTEROL/IPRATROPIUM 3 ML NEB RESP TX SCH ×4 (00:32→19:12)
[2019-08-16] MEDS: INSULIN REGULAR 100 UNIT/ML SUBCUT SCH ×5 (05:12→21:43)
[2019-08-16] MEDS: METOPROLOL TARTRATE 25 MG TABLET PO SCH ×2 (09:10→21:46)
[2019-08-16] MEDS: PANTOPRAZOLE 40 MG TABLET PO SCH (09:10)
[2019-08-16] MEDS: DOCUSATE SODIUM 100 MG CAPSULE PO SCH (09:10)
[2019-08-16] MEDS: metFORMIN 500 MG TABLET PO SCH ×2 (09:10→21:42)
[2019-08-16] MEDS: ASPIRIN EC 81 MG TABLET PO SCH (09:10)
[2019-08-16] MEDS: LOSARTAN 25 MG TABLET PO SCH (09:10)
[2019-08-16] MEDS: FERROUS SULFATE 325 MG TABLET PO SCH (09:10)
[2019-08-16] MEDS: oxyCODONE/ACETAMINOPHEN 5-325 MG TABLET PO PRN ×2 (09:11→18:26)
[2019-08-16] MEDS: CHLORHEXIDINE 0.12% ORAL RINSE 60 ML BOTTLE SWISH/SPIT SCH ×2 (09:15→21:45)
[2019-08-16] MEDS: ROSUVASTATIN 20 MG TABLET PO SCH (21:43)
[2019-08-17] MEDS: INSULIN REGULAR 100 UNIT/ML SUBCUT SCH ×4 (00:56→13:08)
[2019-08-17] MEDS: oxyCODONE/ACETAMINOPHEN 5-325 MG TABLET PO PRN ×2 (01:00→11:36)
[2019-08-17] MEDS: ALBUTEROL/IPRATROPIUM 3 ML NEB RESP TX SCH ×2 (01:08→07:18)
[2019-08-17 06:06] LABS: Basophils % 0.2 % (0.0-0.8); Eosinophils # 0.2 10*3/uL (0.0-0.87); Eosinophils % 1.7 % (0.00-10.9); Immature Granulocytes % 0.8 %; Immature Granulocytes Absolute 0.09 #; Lymphocytes # 3.1 10*3/uL (1.4-4.0); Lymphocytes % 27.6 % (21.2-54.2); Mean Corpuscular HGB Conc 32.1 GM/DL (32-36); Mean Platelet Volume 11.7 FL (9.6-12.0); Monocytes % 7.7 % (1.7-12.7); Platelet Count 208 T/CUMM (130-400); Red Blood Count 3.11 MC/CUMM (3.8-5.5); Red Cell Distribution Width 14.2 % (9.3-17.3); White Blood Count 11.1 T/CUMM (4-12)
[2019-08-17 06:33] LABS: Alanine Aminotransferase 34 U/L (16-61); Albumin 2.5 G/DL (3.4-5.0); Alkaline Phosphatase 51 U/L (45-117); Aspartate Amino Transferase 16 U/L (0-37); Bilirubin,Indirect 1.2 MG/DL (0.0-1.0); Blood Urea Nitrogen 22 MG/DL (7-18); Calcium 8.5 MG/DL (8.5-10.1); Estimated Glom Filtration Rate 108 ML/MIN; Glucose 114 MG/DL (74-106); Osmolality,Calculated 280.5 MOS/KG (273-304); Total Protein 6.2 G/DL (6.4-8.3)
[2019-08-17] MEDS: ASPIRIN EC 81 MG TABLET PO SCH (08:48)
[2019-08-17] MEDS: metFORMIN 500 MG TABLET PO SCH (08:48)
[2019-08-17] MEDS: FERROUS SULFATE 325 MG TABLET PO SCH (08:48)
[2019-08-17] MEDS: PANTOPRAZOLE 40 MG TABLET PO SCH (08:48)
[2019-08-17] MEDS: METOPROLOL TARTRATE 25 MG TABLET PO SCH (08:48)
[2019-08-17] MEDS: LOSARTAN 25 MG TABLET PO SCH (08:48)
[2019-08-17] MEDS: DOCUSATE SODIUM 100 MG CAPSULE PO SCH (08:48)
[2019-08-17] MEDS: CHLORHEXIDINE 0.12% ORAL RINSE 60 ML BOTTLE SWISH/SPIT SCH (08:52)
[2019-08-17 11:59] VITALS: BP 110/62
== END 2019-08-17 13:06 | disposition home health service (06) | DRG 236 ==
LOC: N.TELES 11:22 → N.CVR 08-12 13:01 → N.TELES 08-13 10:08